=== PATIENT | female | born 1995 | race American Indian/Alaskan Native ===

== ENCOUNTER 2021-01-19 09:06 | Emergency (ER) | payer SELFPAY ==
[2021-01-19 09:29] VITALS: BP 125/86
--- NOTE | 2021-01-19 10:00 | XRay Report ---
CHEST 2 VIEWS INDICATION / CLINICAL INFORMATION: cough, SOB. COMPARISON: None available. FINDINGS: SUPPORT DEVICES: None. HEART / MEDIASTINUM: No significant abnormality. LUNGS / PLEURA: Mild increased interstitial prominence in bilateral lower lungs. Questionable opacity developing in left lower lung retrocardiac region. There may be a hiatal hernia. No pneumothorax. Signer Name: Leonel Osborne MD Signed: 01/19/2021 9:55 AM Workstation Name: [id number]
[2021-01-19 11:40] LABS: Basophils % (Auto) 0.6 % (0.0-1.8); Eosinophils % (Auto) 0.5 % (0.0-4.3); Hematocrit 39.8 % (30.3-42.9); Hemoglobin 13.8 gm/dl (10.1-14.3); Lymphocytes # (Auto) 1.1 K/mm3 (1.2-5.4); Lymphocytes % (Auto) 24.3 % (13.4-35.0); Mean Corpuscular HGB Conc 35 % (30-34); Mean Corpuscular Volume 87 fl (79-97); Monocytes # (Auto) 0.5 K/mm3 (0.0-0.8); Monocytes % (Auto) 10.2 % (0.0-7.3); Platelet Count 262 K/mm3 (140-440); Red Blood Count 4.61 M/mm3 (3.65-5.03); Red Cell Distribution Width 13.3 % (13.2-15.2)
[2021-01-19] MEDS ORDERED: SODIUM CHLORIDE 0.9% 1000 ML 1,000 ML IV ONE (11:49)
[2021-01-19] MEDS ORDERED: AZITHROMYCIN/NS 500 MG/250 ML 500 MG/250 ML BAG IV ONE (11:49)
[2021-01-19] MEDS ORDERED: IPRATROPIUM/ALBUTEROL SULFATE 3 ML AMPUL.NEB IH ONE ×2 (11:49→14:04)
[2021-01-19] MEDS ORDERED: methylPREDNISolone Sod Succinate 125 MG/2 ML INJ IV ONE (11:50)
--- NOTE | 2021-01-19 11:50 | Emergency Department Report ---
Minor Respiratory - HPI Chief Complaint: Upper Respiratory Infection Stated Complaint: COUGH/KEVIN Time Seen by Provider: 01/19/21 11:46 Duration: 3 Days Pain Location: Chest Severity: mild Minor Respiratory: Yes Sore Throat, Yes Able to Tolerate Fluids, Yes Cough, No Rhinorrhea, No Ear Pain, No Sick Contacts, No Hemoptysis, No Chest Pain, No Shortness of Breath, No Fever Other History: 25 YO AA COMES TO ER WITH S/S URI. COUGH AND SOB WITH ACTIVITY. CHEST PAIN W COUGH. AMBULATORY TO [facility] WITH SAT 99 ON ROOM AIR. NO KNOWN EXPOSURE TO COVID19. NO VACCINATION TO COVID19 ED Review of Systems ROS: Stated complaint: COUGH/KEVIN Other details as noted in HPI Comment: All other systems reviewed and negative ED Past Medical Hx - Past Medical History Previous Medical History?: No - Surgical History Past Surgical History?: No - Family History Family history: no significant - Social History Smoking Status: Never Smoker Substance Use Type: Alcohol - Medications Home Medications: Home Medications Medication Instructions Recorded Confirmed Last Taken Type Azithromycin [Zithromax Z-ED] 250 mg PO DAILY #6 tablet 01/19/21 Unknown Rx Benzonatate [Tessalon Perles] 100 mg PO BID PRN #20 capsule 01/19/21 Unknown Rx predniSONE [Deltasone] 20 mg PO DAILY #5 tablet 01/19/21 Unknown Rx Minor Respiratory Exam - Exam General: Vital signs noted. No distress. Alert and acting appropriately. HR 90 ON PROVIDER EXAM SAT 100 ON ROOM AIR HEENT: Yes Moist Mucous Membranes, No Pharyngeal Erythema, No Pharyngeal Exudates, No Rhinorrhea, No Conjuctival Injection, No Frontal Tenderness, No Maxillary Tenderness Ear: Neither TM Bulge, Neither TM Erythema, Neither EAC Pain, Neither EAC Discharge Neck: Yes Supple, No Adenopathy Lungs: Yes Good Air Exchange, Yes Wheezes, No Ronchi, No Stridor, No Cough, No Labored Respirations, No Retractions, No Use of Accessory Muscles, No Other Abnormal Lung Sounds Heart: Yes Regular, No Murmur Abdomen: Yes Normal Bowel Sounds, No Tenderness, No Peritoneal Signs Skin: No Rash, No Edema Neurologic: Alert and oriented, no deficits. Musculoskeletal: Unremarkable. ED Course Vital Signs 01/19/21 09:27 Temperature 99 F Pulse Rate 107 H Respiratory 16 Rate Blood Pressure 125/86 [Right] O2 Sat by Pulse 99 Oximetry ED Medical Decision Making - Lab Data Result diagrams: 01/19/21 11:14 01/19/21 11:14 - Radiology Data Radiology results: report reviewed, image reviewed PNA - Medical Decision Making Lab Results 01/19/21 01/19/21 01/19/21 Range/Units 11:14 11:14 11:14 WBC 4.5 (4.5-11.0) K/mm3 RBC 4.61 (3.65-5.03) M/mm3 Hgb 13.8 (10.1-14.3) gm/dl Hct 39.8 (30.3-42.9) % MCV 87 (79-97) fl MCH 30 (28-32) pg MCHC 35 H (30-34) % RDW 13.3 (13.2-15.2) % Plt Count 262 (140-440) K/mm3 Lymph % (Auto) 24.3 (13.4-35.0) % [place] % (Auto) 10.2 H (0.0-7.3) % Eos % (Auto) 0.5 (0.0-4.3) % Baso % (Auto) 0.6 (0.0-1.8) % Lymph # (Auto) 1.1 L (1.2-5.4) K/mm3 [place] # (Auto) 0.5 (0.0-0.8) K/mm3 Eos # (Auto) 0.0 (0.0-0.4) K/mm3 Baso # (Auto) 0.0 (0.0-0.1) K/mm3 Seg Neutrophils % 64.4 (40.0-70.0) % Seg Neutrophils # 2.9 (1.8-7.7) K/mm3 Sodium 131 L (137-145) mmol/L Potassium 4.3 (3.6-5.0) mmol/L Chloride 101.1 (98-107) mmol/L Carbon Dioxide 20 L (22-30) mmol/L Anion Gap 14 mmol/L BUN 7 (7-17) mg/dL Creatinine 0.7 (0.6-1.2) mg/dL Estimated GFR > 60 ml/min BUN/Creatinine Ratio 10 % Glucose 106 H (65-100) mg/dL Lactic Acid 1.50 (0.7-2.0) mmol/L Calcium 8.9 (8.4-10.2) mg/dL Total Bilirubin 0.30 (0.1-1.2) mg/dL AST 38 (5-40) units/L ALT 39 (7-56) units/L Alkaline Phosphatase 120 (35-129) units/L Total Protein 7.5 (6.3-8.2) g/dL Albumin 3.7 L (3.9-5) g/dL Albumin/Globulin Ratio 1.0 % Vital Signs 01/19/21 09:27 Temperature 99 F Pulse Rate 107 H Respiratory 16 Rate Blood Pressure 125/86 [Right] O2 Sat by Pulse 99 Oximetry CHEST XRAY NOTED LABS NOTED IV NS AND AZITHROMYCIN OXYGEN SAT 99 ON ROOM AIR AMBULATORY AND TAKING PO MARCELINA ENCOURAGED PT GET A COVID TEST; UNTIL THEN SHE SHOULD ISOLATE DC HOME WITH DC PLAN OF CARE INCLUDING RX AND FOLLOW UP. PT VERBALIZES UNDERSTANDING OF PLAN - Differential Diagnosis RO COVID/PNA Critical care attestation.: If time is entered above; I have spent that time in minutes in the direct care of this critically ill patient, excluding procedure time. ED Disposition Clinical Impression: Pneumonia, Upper respiratory infection Disposition: DC-01 TO HOME OR SELFCARE Is pt being admited?: No Does the pt Need Aspirin: No Condition: Stable Instructions: Community-Acquired Pneumonia, Adult, [id number], Bacterial Pneumonia (ED) Additional Instructions: med as ordered today motrin or tylenol for pain or fever FOLLOW UP WE DISCUSSED FOR COVID TEST SELF ISOLATION UNTIL YOU HAVE COVID TEST FOLLOW UP WITH PCP NEXT WEEK TO BE SURE YOU ARE GETTING BETTER STAY WELL HYDRATED WITH WATER Prescriptions: predniSONE [Deltasone] 20 mg PO DAILY #5 tablet Benzonatate [Tessalon Perles] 100 mg PO BID PRN #20 capsule PRN Reason: Cough Azithromycin [Zithromax Z-ED] 250 mg PO DAILY #6 tablet Referrals: ARTEMIO DAS MD [Staff Physician] - 3-5 Days Time of Disposition: 12:57
[2021-01-19 12:16] LABS: Alanine Aminotransferase 39 units/L (7-56); Albumin 3.7 g/dL (3.9-5); Blood Urea Nitrogen 7 mg/dL (7-17); Calcium 8.9 mg/dL (8.4-10.2); Hemolysis Index 21
[2021-01-19 12:26] LABS: BUN/Creatinine Ratio 10
== END 2021-01-19 14:50 | disposition home or self-care (01) ==
LOC: ED 09:06
DX: J06.9 Acute upper respiratory infection, unspecified (principal); J18.9 Pneumonia, unspecified organism; Z79.899 Other long term (current) drug therapy
CPT/HCPCS: 36415; 71046; 80053; 82140; 85025; 85379; 94640; 96365; 96375; 99284; J0456; J2930; J7030; 94644